=== PATIENT | male | born 1995 | race Caucasian/White ===

== ENCOUNTER 2016-07-25 05:50 | Observation (INO) | payer OTHER ==
[2016-07-22 12:59] LABS: BASOPHILS 0.3 %; BASOPHILS ABSOLUTE 0.02 10/3/uL (0.0-0.16); EOSINOPHILS 2.2 %; EOSINOPHILS ABSOLUTE 0.15 10/3/uL (0.0-0.53); HEMATOCRIT 40.8 % (40.0-51.0); HEMOGLOBIN 13.6 g/dL (13.6-17.8); IMMATURE GRANULOCYTES 0.3 %; IMMATURE GRANULOCYTES ABSOLUTE 0.02 10/3/uL (0.0-0.11); LYMPHOCYTES 38.9 %; MANUAL DIFF NO %; MEAN CORPUS HGB CONC 33.3 g/dL (32.0-36.0); MEAN CORPUSCULAR VOLUME 89.9 fL (80-100); MEAN PLATELET VOLUME 10.3 fL (9.2-13.0); MONOCYTES 8.5 %; MONOCYTES ABSOLUTE 0.59 10/3/uL (0.21-1.20); NEUTROPHILS 49.8 %; NEUTROPHILS ABSOLUTE 3.46 10/3/uL (2.02-8.40); PLATELET COUNT 214 10/3/uL (150-400); RBC DISTRIBUTION WIDTH 12.2 % (12.0-16.0); RED CELL COUNT 4.54 10/6/uL (4.7-6.1); WHITE BLOOD CELLS 6.9 10/3/uL (4.5-10.5)
[2016-07-22 13:11] LABS: BUN (BLOOD UREA NITROGEN) 16 MG/DL (6-23); CALCIUM, SERUM 8.7 MG/DL (8.5-10.4); CHLORIDE, SERUM 107 MMOL/L (96-112); CO2 (CARBON DIOXIDE) 31 MMOL/L (24-34); CREATININE 0.82 MG/DL (0.70-1.30); GFR AFRICAN AMERICAN 147 ML/MIN (>=60); GFR NON AFRICAN AMERICAN 126 ML/MIN (>=60); GLUCOSE, SERUM 100 MG/DL (60-99); POTASSIUM, SERUM 4.8 MMOL/L (3.5-5.3); SODIUM, SERUM 144 MMOL/L (135-148)
--- NOTE | ~2016-07-25 | OP ---
Record Of Operation [place] [id number] [facility]. [address] NAME: ANA MCPHERSON : 89 STATUS : ADM Gonzalo PAT#: [id number] AGE: 21 ADM/REG DATE : 07/25/16 MR#: [id number] REPORT SERV DATE: 07/25/16 DICTATED BY: CRISTINA CRUZ DATE: 07/25/16 REPORT STATUS : Draft TRANSCRIBED BY: AMIRA DATE: 07/25/16 DATE OF PROCEDURE: 07/25/2016 SERVICE: Otolaryngology. PREOPERATIVE DIAGNOSES: 1. Adenotonsillar hypertrophy. 2. Obstructive sleep apnea. 3. Septal deviation. POSTOPERATIVE DIAGNOSES: 1. Adenotonsillar hypertrophy. 2. Obstructive sleep apnea. 3. Septal deviation. PROCEDURE PERFORMED: 1. Uvulopalatopharyngoplasty with tonsillectomy. 2. Adenoidectomy. 3. Septoplasty. 4. Bilateral inferior turbinate reduction with submucosal resection and outfracture. INDICATIONS FOR PROCEDURE: The patient is a 21-year-old male with history of snoring and apneic episodes. He was evaluated in clinic and found to have 4+ tonsils as well as chronic mouth-breathing status. Intranasally, he has left septal deviation. He reports long- standing history of not being able to breathe out of the left side of his nose greater than the right side. He presents for surgical management. ANESTHESIA: General endotracheal. BLOOD LOSS: 30 mL. RETAINED ITEMS: Bilateral Cazares splints. SPECIMENS: 1. Bilateral tonsils. 2. Adenoids. 3. Uvula. OPERATIVE FINDINGS: 1. 4+ tonsils. 2. 100% obstructive adenoids. 3. Left septal deviation with lateral nasal wall contact. DESCRIPTION OF PROCEDURE: The patient was identified in preoperative holding where informed consent was ensured. He was brought to the operating room and placed on the operating table in supine position. General endotracheal anesthesia was induced without difficulty. A time Record Of [address] [place]. [address] NAME: ANA MCPHERSON : 95 STATUS : ADM Gonzalo PAT#: [id number] AGE: 21 ADM/REG DATE : 07/25/16 MR#: [id number] REPORT SERV DATE: 04/24/17 DICTATED BY: CRISTINA CRUZ DATE: 07/25/16 REPORT STATUS : Draft TRANSCRIBED BY: AMIRA DATE: 07/25/16 out was performed to identify the patient and discuss operative plan. The patient was then prepped and draped in the standard fashion for this procedure. The head of bed was turned 90 degrees to facilitate access to the head and neck. A Gagandeep-Jagdeep mouth gag was inserted into the oral cavity and suspended from towels placed on the patient's chest. The tonsils as previously noted were both 4+ and symmetric. First, the right tonsil was resected from its tonsillar fossa. Hemostasis was ensured with suction Bovie cautery. A similar procedure was performed on the contralateral side using Bovie cautery to resect the left tonsil from the tonsillar fossa. Once again, hemostasis was ensured with suction Bovie cautery. A small incision was made with Bovie cautery on the cut function at the base of the uvula. The uvula as well as a small portion of the soft palate were grasped with Adson and resected carefully. The tonsillar fossae were reapproximated with 3-0 Vicryl sutures bilaterally. The mucosal surfaces of the soft palate were then reapproximated using the same suture. The patient's oral cavity was copiously irrigated. Attention was then turned with a dental mirror to the adenoids, which were 100% obstructive. With some difficulty, these were taken down with combination of suction Bovie cautery as well as curette. Specimens were sent for routine pathology. The adenoids were seen to extend into the choana bilaterally. Superiorly, these extended posterior to the eustachian tube orifices. As much of these were taken down as possible. The nasopharynx was then seen to be clear and bilateral choanae could be visualized. Attention was then turned to the patient's nasal cavities and septum. Topical epinephrine was placed on pledgets into bilateral nasal cavities. The septum itself as well as the inferior turbinates were then injected with 2 mL of 1% lidocaine with 1:100,000 epinephrine, which was allowed to take full effect. A sharifa-transfixion incision was then made on the patient's left septum. A submucoperichondrial flap was established first on the left side and elevated posteriorly. The nasal endoscope was brought into the field and the video tower was used for the remainder of this case for direct visualization of the septoplasty. A submucoperichondrial flaps were elevated bilaterally. The cartilage was fractured approximately 1.5 cm posterior to the caudal septal strut. The cartilage was taken out piecemeal from anterior to posterior. Additionally, the nasal spine was removed. Visualization in the nasal cavities ensured that the septum was adequately straightened. Once adequately straightened, the sharifa-transfixion incision was closed with 4-0 chromic suture in an interrupted fashion. The submucoperichondrial flaps were then reapproximated with a Jim needle in a running, nonlocking fashion. Finally, attention was turned to the inferior turbinates. A small stab incision was made in the head of the left inferior turbinate. A caudal was used to establish a submucosal plane posteriorly. The microdebrider blade was then inserted for submucosal resection. The left inferior turbinate was then outfractured. There was good visualization of the posterior choana at this point. Similar procedure was performed on the contralateral side with knife incision to the head of the inferior turbinate and submucosal elevation with caudal. The turbinate blade was then used to perform a submucosal resection and outfracture was performed with good visualization of the choana on this side as well. The patient was then copiously irrigated. Cazares splints were placed bilaterally and secured to the anterior septum with a 2-0 nylon suture. The oropharynx and stomach were suctioned of all gastric contents. The patient was turned over to Anesthesia for awakening and extubation. He was transported to the PACU in stable condition. Record Of Operation [address] [address] NAME: ANA MCPHERSON : 95 STATUS : ADM Gonzalo PAT#: [id number] AGE: 21 ADM/REG DATE : 07/25/16 MR#: [id number] REPORT SERV DATE: 07/25/16 DICTATED BY: CRISTINA CRUZ DATE: 07/25/16 REPORT STATUS : Draft TRANSCRIBED BY: AMIRA DATE: 07/25/16 DISPOSITION: The patient will follow up in approximately one week for Cazares splint removal. He may require observation tonight, but will be kept in PACU for extended stay at least four hours for postoperative monitoring. /MODL Cristina Cruz MD / [id number] CC: Cristnia Cruz MD NO PCP
[~2016-07-25 05:50] MED LIST: *DENIES
== END 2016-07-25 17:07 | disposition home or self-care (01) ==
LOC: SDC 05:50 → SDC/OF 11:03
PROVIDERS: Otolaryngology
PROC: 0CTPXZZ Resection of Tonsils, External Approach (ICD-10-PCS; 2016-07-25)
PROC: 0CTQ0ZZ Resection of Adenoids, Open Approach (ICD-10-PCS; 2016-07-25)
PROC: 0KS Muscles, Reposition (ICD-10-PCS; 2016-07-25)
PROC: 09BM0ZZ Excision of Nasal Septum, Open Approach (ICD-10-PCS; principal; 2016-07-25 07:15)
DX: G47.33 Obstructive sleep apnea (adult) (pediatric) (principal); J35.3 Hypertrophy of tonsils with hypertrophy of adenoids; J34.2 Deviated nasal septum
CPT/HCPCS: 80048; 85025; 85730; 88300; 88304; A9270-GY; G0378; J0690; J1170; J2250; J2405; J2710; J3010